=== PATIENT | female | born 1955 | race Caucasian/White ===

== ENCOUNTER 2018-10-16 11:36 | Inpatient (IN) | payer BC, OTHER ==
[~2018-10-16] VITALS: Ht 162.6 cm; Wt 93.0 kg
--- NOTE | 2018-10-16 15:00 | NUR ---
Pre-admission Pre-admission assessment performed in the intake department of [facility]. Pt is A&O and ambulatory with a steady gait. She does not appear intoxicated and answers questions appropriately. Vital signs are B/P: 129/66, HR 97, RR 16, O2 sat 96%, T 98.0. She reports that she has been using [place] 6 tabs of 10-325mg/day and Xanax 0.5mg/day. She also takes Lunesta at bed time. Last used [place] today at 1330 and last used Xanax this morning. Pt is stable and admission is to continue [facility].
[2018-10-16 15:15] VITALS: BP 129/66
[2018-10-16] MEDS ORDERED: BENA40TA67 PO (15:17)
[2018-10-16] MEDS ORDERED: HYDR-4354 PO (15:17)
[2018-10-16] MEDS ORDERED: ALPR0.5T PO (15:17)
[2018-10-16] MEDS ORDERED: PARO25TA16 PO (15:17)
[2018-10-16] MEDS ORDERED: ESZO3TAB27 PO (15:17)
[2018-10-16] MEDS ORDERED: HYDR25TA4 PO (15:17)
[2018-10-16] MEDS ORDERED: POTA10CA43 PO (15:17)
--- NOTE | 2018-10-16 15:17 | NUR ---
ADMISSION NOTE STATUS-FULL CODE HEIGHT-5'4 WEIGHT-205IBS PCP-DR. HOLMAN VITAL SIGNS-B/P-129/66,HR-97,RR-16,SPO2-96%,TEMP-98.1 Patient is 63 year old female admitted to [facility] for medical supervised withdrawal from Benzo(Xanax), Opioids([place]). Patient arrived on the unit at 1517. Patient skin is intact, no contraband found. Patient provided UDS. Patient is ambulatory with steady gait. PEERLA. Respirations even and unlabored, lung sounds clear bilaterally. Last BM was yesterday. Patient presents with tearing eyes, anxious, agitated, slumped posture and restless, fatigue. Patient does not appear to have any withdrawal symptoms at this time with evidence of low CIWA/COWS score, CIWA-2, COWS-3. SUBSTANCE USE HISTORY 1. NORCO- Taking 10 mg PO daily 4 times a day but for the past two years taking 60 mg daily which is more than it was prescribed for osteoarthritis. Last used was 10/16/18/, 10mg PO at 1330. 2. XANAX-Taking 0.5mg PO daily 3 times a day for the past 4 years was prescribed for my anxiety. Last used was 10/16/18 at 0800. 3. LUNESTA-Taking 3mg PO daily QHS was prescribed for insomnia. Last intake was 10/15/18 at 2200. MEDICAL AND PSYCHIATRIC HISTORY Patient reports PMH of depression, anxiety, insomnia, osteoarthritis. Patient reports past surgical history of Rotator cuff surgery in 2016 and right Bunion surgery in February 2018. Patient reports she never smokes cigarettes but for the past 5 years using Vape daily. Patient reports s/s of withdrawal as extreme anxiety, sweats, depression. Patient reports longest periods of sobriety is 3 days which was in 2017. Patient also reports " I really haven't allowed my self to go in to withdrawal because i am scared if i got sick who is going to take care of my daughter she was diagnosed with Asperger syndrome." Patient stated, "my friends are my support system and they are sober." Patient denies any history of seizure, no delirium, no cardiac complications, no overdose or blackout. Patient denies any history of SI/HI. Patient reports first time in treatment. Patient reports "I wanted to get sober for my daughter." My friends helped me to come to [facility] to get help. Patient reported " I also wanted to stop taking pills because i am scared to ." DR. Talbert was on the unit and was able to assess the patient. Educated patient about plan of care including detox, group therapy and discharge planning. Encourage patient to be open honest and verbalized support for patient in his recovery. Encourage patient to notify staff with any concerns. Patient was oriented to unit, room and call lights, oriented to unit routines and activity groups, and provided with hygiene supplies. Patient has been educated about plan of care and case management, as well as unit protocols. Safety measures in place, side rails up x2 bed locked in low position, call light within reach. Will cont to monitor. Addendum: 10/16/18 at 1851 by GLENROY CASTANON LVN [id number].
[2018-10-16 15:50] LABS: *URINE HCG, QUAL NEGATIVE (NEGATIVE)
[2018-10-16 16:00] VITALS: BP 130/67
[2018-10-16 16:02] LABS: *AMPHETAMINE, URINE NEGATIVE (NEGATIVE); *BARBITURATE, URINE NEGATIVE (NEGATIVE); *CANNABINOID, URINE NEGATIVE (NEGATIVE); *COCCAINE, URINE NEGATIVE (NEGATIVE); *OPIATE, URINE POSITIVE (NEGATIVE); *PHENCYCLIDINE SCREEN,URINE NEGATIVE (NEGATIVE)
[2018-10-16] MEDS ORDERED: LOPERAMIDE HCL 2 MG CAPSULE PO PRN ×2 (17:15)
[2018-10-16] MEDS ORDERED: ONDANSETRON 4 MG/2 ML VIAL IM PRN (17:15)
[2018-10-16] MEDS ORDERED: DIAZEPAM 5 MG TABLET PO PRN (17:15)
[2018-10-16] MEDS ORDERED: CLONIDINE HCL 0.1 MG TABLET PO PRN (17:15)
[2018-10-16] MEDS ORDERED: BUPRENORPHINE HCL 2 MG TAB.SUBL SL PRN (17:15)
[2018-10-16] MEDS ORDERED: diphenhydrAMINE 50 MG CAPSULE PO PRN (17:15)
[2018-10-16] MEDS ORDERED: ACETAMINOPHEN 325 MG TABLET PO PRN (17:15)
[2018-10-16] MEDS ORDERED: METHOCARBAMOL 750 MG TABLET PO PRN (17:15)
[2018-10-16] MEDS ORDERED: DIAZEPAM 10 MG TABLET PO PRN ×2 (17:15)
[2018-10-16] MEDS ORDERED: MIRALAX 17 GM POWD.PACK PO PRN (17:15)
[2018-10-16] MEDS ORDERED: HYDROXYZINE PAMOATE 25 MG CAPSULE PO PRN (17:15)
[2018-10-16] MEDS ORDERED: LORAZEPAM 2 MG/1 ML VIAL IM PRN (17:15)
[2018-10-16] MEDS ORDERED: MAGNESIUM HYDROXIDE 30 ML LIQUID UDC PO PRN (17:15)
[2018-10-16] MEDS ORDERED: ONDANSETRON ODT 4 MG TAB.RAPDIS SL PRN (17:15)
[2018-10-16] MEDS ORDERED: MAG HYDROX/AL HYDROX/SIMETH 30 ML LIQUID UDC PO PRN (17:15)
--- NOTE | 2018-10-16 19:16 | NUR ---
END OF SHIFT NOTE Endorse patient to night nurse 63 year old female admitted for Opioids/Benzo withdrawal. Patient was seen by MD douglas order to start 3 days Valium and 3 days Subutex taper in AM. Patient is currently resting in bed watching TV no s/s of distress noted. Encourage PO fluids as tolerated. All safety measures in place, call light within reach. Endorse care to night nurse.
--- NOTE | 2018-10-16 19:30 | NUR ---
START OF SHIFT Pt is a 63 y/o female admitted on 10/16/18 for benzo and opiate withdrawal. Pt will start a 3 day Valium and 3 day Subutex taper tomorrow, has PRNs available at this time. Last COWS 3 and CIWA 2 and no PRNs administered during day shift. Upon assessment pt presents with lethargy, anxiety, chills, elevated HR, and slumped posture. Medications due. Safety measures in place. Call light within reach. Will continue to monitor.
[2018-10-16 20:00] VITALS: BP 126/82
--- NOTE | 2018-10-16 20:00 | NUR ---
COWS/CIWA ASSESSMENT COWS 4 and CIWA 5. Pt presents with lethargy, anxiety, chills, elevated HR, and slumped posture. Pt laying in bed, fatigued and states, "I don't feel too bad right now, I just want to sleep."
--- NOTE | 2018-10-16 20:26 | NUR ---
PRN VALIUM 5 MG AND MOTRIN ADMINISTRATION CIWA 5. Pt presents with anxiety, chills, increased HR. Pt complains of joint pain r/t arthritis. Safety measures in place. Call light within reach. Will continue to monitor.
[2018-10-16] MEDS: IBUPROFEN 600 MG TABLET PO PRN (20:27)
[2018-10-16 21:18] LABS: BASOPHILS # (AUTO) 0.1 K/uL (0.0-8.0); BASOPHILS % (AUTO) 0.7 % (0.0-2.0); EOSINOPHILS # (AUTO) 0.3 K/uL (0.0-0.7); EOSINOPHILS % (AUTO) 3.3 % (0.0-7.0); HEMATOCRIT 40.5 % (31.2-41.9); HEMOGLOBIN 13.7 g/dL (10.9-14.3); LYMPHOCYTES # (AUTO) 3.2 K/uL (20.0-40.0); MEAN CORPUSCULAR HEMOGLOBIN 30.2 uug (24.7-32.8); MEAN CORPUSCULAR HGB CONC 34 g/dL (32.3-35.6); MEAN CORPUSCULAR VOLUME 89.1 fL (75.5-95.3); MONOCYTES # (AUTO) 0.8 K/uL (2.0-10.0); MONOCYTES % (AUTO) 7.6 % (0.0-11.0); NEUTROPHILS # (AUTO) 6.2 K/uL (1.8-8.9); NEUTROPHILS % (AUTO) 58.4 % (38.5-71.5); PLATELET COUNT (AUTO) 347 K/uL (179-408); RED BLOOD CELL COUNT(AUTO) 4.55 MIL/uL (3.63-4.92); WHITE BLOOD COUNT (AUTO) 10.5 K/uL (3.8-11.8)
--- NOTE | 2018-10-16 21:26 | NUR ---
PRN VALIUM AND MOTRIN REASSESSMENT Pt laying in bed with eyes closed, medications noted effective. Safety measures in place. Call light within reach. Will continue to monitor.
[2018-10-16 21:34] LABS: ALANINE AMINOTRANSFERASE 23 U/L (14-59); ALKALINE PHOSPHATASE 46 U/L (50-136); ASPARTATE AMINOTRANSFERASE 15 U/L (15-37); BILIRUBIN,TOTAL 0.2 mg/dL (0.2-1.0); CARBON DIOXIDE 29 mmol/L (21-32); CHLORIDE 104 mmol/L (98-107); GLUCOSE 128 mg/dL (74-106); MAGNESIUM 2.1 mg/dL (1.8-2.4); POTASSIUM 3.3 mmol/L (3.5-5.1); TOTAL PROTEIN, SERUM 6.7 g/dL (6.4-8.2); UREA NITROGEN, BLOOD 20 mg/dL (7-18)
[2018-10-16 21:44] LABS: ETHANOL < 3 MG/DL (0-0); THYROID STIMULATING HORMONE 1.866 mIU/mL (0.358-3.740)
[2018-10-16] MEDS ORDERED: POTASSIUM CHLORIDE 20 MEQ TAB.PRT.SR PO ONE (22:00)
[2018-10-17] VITALS: BP 123/81
--- NOTE | 2018-10-17 | NUR ---
COWS/CIWA DEFERRED Pt laying in bed with eyes closed, COWS/CIWA deferred, to be assessed when pt is awake per orders. Respirations even and unlabored. Safety measures in place. Will continue to monitor.
[2018-10-17 04:00] VITALS: BP 128/83
--- NOTE | 2018-10-17 07:13 | NUR ---
END OF SHIFT Pt is a 63 y/o female admitted on 10/16/18 for benzo and opiate withdrawal. Pt will start a 3 day Valium and 3 day Subutex taper this morning. Pt presented with lethargy, anxiety, chills, elevated HR, and slumped posture. Pt received PRN Valium 5 mg and Motrin, which were effective. Pt slept 10 hours. Intake 1000 ml, void x 2, stool x 0. Safety measures in place. Call light within reach. Pts needs have been met. Endorsed to day shift nurse.
--- NOTE | 2018-10-17 07:56 | NUR ---
START OF SHIFT NOTE Received report from night nurse, 63 year old female admitted for Benzo/Opioids withdrawal. Patient order to start her Subutex and Valium taper this morning. Per endorsement patient received PRN Valium and Motrin effective per night nurse, slept for 10 hours,last COWS-4, CIWA-5. Received patient asleep responsive to verbal and tactile stimuli. Breathing normal no SOB noted. Skin intact warm and dry tot touch. Vital signs WNL. All safety measures in place. Will cont with plan of care.
[2018-10-17 07:58] LABS: CREATININE 0.9 mg/dL (0.6-1.3); POTASSIUM 4.1 mmol/L (3.5-5.1)
[2018-10-17 08:00] VITALS: BP 114/72
[2018-10-17] MEDS: MULTIVITAMINS,THERAPEUTIC TABLET PO SCH (08:34)
[2018-10-17] MEDS: DIAZEPAM 5 MG TABLET PO SCH ×3 (08:34→21:22)
--- NOTE | 2018-10-17 08:34 | NUR ---
CIWA/COWS ASSESSMENT Patient presented with s/s of withdrawal such as anxiety, difficulty sitting still, agitation, restless, fatigue, yawning, bilateral hand tremors, sweats,chills, stomach cramps. CIWA-11, COWS-12. Patient received her schedule medications. Will cont to monitor. Addendum: 10/17/18 at 1523 by GLENROY CASTANON LVN [place]- COWS-13.
[2018-10-17] MEDS: BUPRENORPHINE HCL 2 MG TAB.SUBL SL SCH ×2 (08:35→21:23)
[2018-10-17] MEDS ORDERED: TUBERCULIN,PURIF.PROT.DERIV. 5 TU/0.1 ML TEST ID ONE (09:00)
[2018-10-17] MEDS ORDERED: 3 DAY TAPER OF VALIUM-SERENITY PROTOCOL PO PRN (09:00)
[2018-10-17] MEDS ORDERED: 3 DAY TAPER BUPRENORPHINE -SERENITY PROTOCOL SL PRN (09:00)
[2018-10-17] MEDS: PAROXETINE HCL 20 MG TABLET PO SCH (11:00)
[2018-10-17] MEDS ORDERED: NICOTINE POLACRILEX 4 MG GUM-PK OF TEN BC PRN (11:15)
[2018-10-17 12:00] VITALS: BP 149/73
--- NOTE | 2018-10-17 12:36 | NUR ---
PRN Nicotine Gum Pt reports Nicotine cravings. PRN Nicotine gum administered.
--- NOTE | 2018-10-17 13:06 | NUR ---
NICOTINE REASSESSMENT patient reported nicotine gum was effective craving subsided.
--- NOTE | 2018-10-17 14:08 | NUR ---
CIWA/COWS ASSESSMENT CIWA-11, COWS-12. Patient continues to exhibited s/s of withdrawal such as anxiety, agitation, restless, fatigue, yawning, bilateral hand tremors, sweats, stomach cramps. Patient received her schedule medications. Will cont to monitor.
--- NOTE | 2018-10-17 14:09 | NUR ---
Therapist prompted client to attend group therapy.
[2018-10-17 16:00] VITALS: BP 131/79
[2018-10-17] MEDS ORDERED: PATIENT MAY USE OWN MED- MD OK PO SCH (19:00)
--- NOTE | 2018-10-17 19:07 | NUR ---
END OF SHIFT NOTE Endorse patient to night nurse, patient admitted for Benzo/Opioids withdrawal. patient started on Subutex and Valium taper this morning for CIWA score 11 and COWS score 13. Patient presented with flat facial expression, emotional, anxious, agitated, restless, fatigue, bilateral hand tremors, yawning, stomach cramps, chills, sweats, patient received schedule medications along with PRN nicotine gum noted to be effective. Encourage patient to attend groups activities to learn new coping skills. Patient was encouraged adequate PO fluids intake as tolerated. Denies any SI/HI. All safety measures in place. Endorse care to night nurse, all information was discussed.
--- NOTE | 2018-10-17 19:30 | NUR ---
START OF SHIFT Pt is a 63 y/o female admitted on 10/16/18 for benzo and opiate withdrawal. Pt started a 3 day Valium and 3 day Subutex taper today, tolerating well. No PRNs and last COWS 10 and CIWA 11 during day shift. Upon assessment pt presents with anxiety, depressed affect, flushed skin, intermittent sweats, sensitivity to light, sensitivity to sounds, chills, stomach cramps, increased HR, disheveled appearance. Medications due. Safety measures in place. Call light within reach. Will continue to monitor.
[2018-10-17 20:00] VITALS: BP 139/84
--- NOTE | 2018-10-17 20:00 | NUR ---
COWS/CIWA ASSESSMENT COWS 11 and CIWA 12. Pt presents with anxiety, depressed affect, flushed skin, intermittent sweats, sensitivity to light, sensitivity to sounds, chills, stomach cramps, increased HR, disheveled appearance.
[2018-10-17] MEDS: HYDROCHLOROTHIAZIDE 25 MG TABLET PO SCH (20:01)
[2018-10-17] MEDS: POTASSIUM CHLORIDE 10 MEQ TAB.PRT.SR PO SCH (20:01)
[2018-10-17] MEDS: IBUPROFEN 600 MG TABLET PO PRN (20:01)
--- NOTE | 2018-10-17 20:01 | NUR ---
PRN MOTRIN ADMINISTRATION Pt reports pain in joints, mainly her left knee 05/07 r/t her arthritis. Pt also complains of generalized aches. Safety measures in place. Call light within reach. Will continue to monitor.
--- NOTE | 2018-10-17 21:01 | NUR ---
NAUN AMBRIZ REASSESSMENT Pt reports that her joint pain reduced slightly to a 4/10. Pt refusing additional pain medication. Pt stated, "I'll just lay down and I think I'll be okay."
[2018-10-18] VITALS: BP 129/87
--- NOTE | 2018-10-18 | NUR ---
COWS/CIWA ASSESSMENT COWS 6 and CIWA 10. Pt presents with anxiety, restlessness, flat affect, chills, sensitivity to sounds, disheveled appearance, difficulty staying asleep. Pt stated, "I just recently woke up, I think I'm going to read until I fall back asleep."
[2018-10-18 04:00] VITALS: BP 137/84
--- NOTE | 2018-10-18 04:00 | NUR ---
COWS/CIWA DEFERRED Pt laying in bed with eyes closed, COWS/CIWA deferred, to be assessed when pt is awake per orders. Respirations even and unlabored. Safety measures in place. Call light within reach. Will continue to monitor.
--- NOTE | 2018-10-18 07:07 | NUR ---
END OF SHIFT Pt is a 63 y/o female admitted on 10/16/18 for benzo and opiate withdrawal. Pt started a 3 day Valium and 3 day Subutex taper on 10/17/18, tolerating well. Pt presented with anxiety, depressed affect, flushed skin, intermittent sweats, sensitivity to light, sensitivity to sounds, chills, stomach cramps, body aches, increased HR, disheveled appearance. Pt also complained of left knee pain r/t arthritis, which was relieved by Motrin, rest and elevation. Scheduled medications administered, effective in S/S of withdrawal AEB COWS 11 and CIWA 12 lowered to COWS 6 and CIWA 10 during shift. Pt slept 8 hours. Intake 1000 ml, void x 2, stool x 1. Safety measures in place. Call light within reach. Pts needs have been met. Endorsed to day shift nurse.
--- NOTE | 2018-10-18 07:20 | NUR ---
Start of Shift Pt. is a 63 y/o female admitted for the medically managed withdrawal from Opiates and Benzodiazepines. Pt. was placed on a 3 day valium and 3 day Subutex taper to manage withdrawal symptoms. Endorse form previous shift pt. presented with anxiety, restlessness, and body aches. Received pt. in room. Pt. in bed with eyes closed. No signs of distress noted. Safety measures in place. Will continue to monitor pt.s behavior for safety.
[2018-10-18 08:00] VITALS: BP 101/62
--- NOTE | 2018-10-18 08:00 | NUR ---
COWS/CIWA Assessment COWS of 9 and CIWA of 9. Pt. in room presenting with anxiety, diaphoresis, restlessness, and tremors. Will give medications as ordered. Will continue to monitor pt.'s behavior for safety and medication effectiveness.
[2018-10-18 08:06] LABS: HEPATITIS B SURFACE AG Negative (Negative)
[2018-10-18] MEDS: DIAZEPAM 5 MG TABLET PO SCH ×2 (08:54→21:23)
[2018-10-18] MEDS: PAROXETINE HCL 20 MG TABLET PO SCH (08:54)
[2018-10-18] MEDS: BUPRENORPHINE HCL 2 MG TAB.SUBL SL SCH ×3 (08:54→21:23)
[2018-10-18] MEDS: MULTIVITAMINS,THERAPEUTIC TABLET PO SCH (08:55)
[2018-10-18] MEDS: POTASSIUM CHLORIDE 10 MEQ TAB.PRT.SR PO SCH (08:55)
[2018-10-18] MEDS: HYDROCHLOROTHIAZIDE 25 MG TABLET PO SCH (08:57)
[2018-10-18] MEDS ORDERED: VANCOMYCIN IV 2,000 MG in IV DEXTROSE 5% 500 ML IV SCH (09:00)
[2018-10-18 12:00] VITALS: BP 134/98
--- NOTE | 2018-10-18 12:00 | NUR ---
COWS/CIWA Assessment COWS of 9 and CIWA of 9. Pt. in room presenting with anxiety, diaphoresis, restlessness, and tremors. Pt. compliant with treatment plan and medication regiment. Will continue to monitor pt.'s behavior for safety and medication effectiveness.
[2018-10-18 16:00] VITALS: BP 120/73
--- NOTE | 2018-10-18 19:11 | NUR ---
End of Shift Pt. is a 63 y/o female admitted for the medically managed withdrawal from Opiates and Benzodiazepines. Pt. was placed on a 3 day valium and 3 day Subutex taper to manage withdrawal symptoms. Throughout shift pt. presented with anxiety, restlessness, and body aches. Pt. compliant with treatment plan and medication regiment. Safety measures in place. Will endorse pt.s care to oncoming shift.
--- NOTE | 2018-10-18 19:12 | NUR ---
Start of shift note Received report from day shift nurse. Pt is a 63 yo female, A+Ox4, presenting to [facility] for medically supervised Benzo/Opiate withdrawal. Pt was also taking Lunesta. Pt noted with generalized body pain, anxiety, agitation, and restlessness. Pt has HX of anxiety, depression, insomnia, arthritis, and fibromyalgia which will be monitored during shift. Pt is on 3 day Valium and 3 day Subutex tapers, tolerated well. Respirations even and unlabored. Will continue to monitor.
[2018-10-18] MEDS: IBUPROFEN 600 MG TABLET PO PRN (20:01)
--- NOTE | 2018-10-18 20:01 | NUR ---
PRN Motrin Pt c/o generalized body aches 03/07 and requested for PRN Motrin. Medication given and tolerated well. Will reassess within 1 HR. Will continue to monitor.
[2018-10-18 20:11] VITALS: BP 138/72
--- NOTE | 2018-10-18 20:11 | NUR ---
COWS and CIWA Assessment COWS: 8 and CIWA: 8. Pt noted with fine tremors, sweat, anxiety, agitation, pulse 94, chills, restlessness, mild diffuse discomfort, stuffy nose, and yawning. Respirations even and unlabored. Will continue to monitor.
--- NOTE | 2018-10-18 21:01 | NUR ---
PRN Motrin Reassessment Medication effective. Pt expresses reduction of pain to 2/10. NO s/s of ASE noted at this time. Respirations even an unlabored. Will continue to monitor.
--- NOTE | 2018-10-19 00:55 | NUR ---
V/S refused and COWS and CIWA Assessment deferred for sleep. Respirations even and unlabored. Will continue to monitor.
--- NOTE | 2018-10-19 04:50 | NUR ---
V/S refused and COWS and CIWA Assessment deferred for sleep. Respirations even and unlabored at this time. Will continue to monitor.
--- NOTE | 2018-10-19 07:00 | NUR ---
End of shift note Pt was continuously noted with generalized body aches, anxiety, restlessness, and agitation. Pt remained in room for majority of shift except to get food from kitchen. Pt remained cooperative and compliant with all aspects of treatment. Pt was given PRN Motrin @2000. Pt remains on 3 day Valium and 3 day Subutex tapers, tolerated well. Pt slept for a total of 9 HRS. Last COWS: 8 and Last CIWA: 8 @2010. Respirations even and unlabored. Will endorse to day shift nurse.
--- NOTE | 2018-10-19 07:15 | NUR ---
Start of Shift note Pt. is a 63 y/o female admitted for the medically managed withdrawal from benzodiazepines, and Opiates. Pt. was placed on Valium and Opiate tapers to manage withdrawal symptoms. Endorse from previous shift pt. presented with anxiety and restlessness. Received pt. in room. Pt. in bed with eye closed. No signs of SOB noted. Safety measures in place. Will continue to monitor pt.s behavior for safety and medication effectiveness.
[2018-10-19 08:00] VITALS: BP 126/75
--- NOTE | 2018-10-19 08:00 | NUR ---
COWS/CIWA Assessment COWS of 8 and CIWA of 8. Pt. in room presenting with diaphoresis, anxiety, and restlessness. Will give medications as ordered. Will continue to monitor pt.'s behavior for safety and medication effectiveness.
[2018-10-19] MEDS: MULTIVITAMINS,THERAPEUTIC TABLET PO SCH (08:56)
[2018-10-19] MEDS: POTASSIUM CHLORIDE 10 MEQ TAB.PRT.SR PO SCH (08:57)
[2018-10-19] MEDS: PAROXETINE HCL 20 MG TABLET PO SCH (08:58)
[2018-10-19] MEDS: HYDROCHLOROTHIAZIDE 25 MG TABLET PO SCH (08:58)
[2018-10-19] MEDS ORDERED: DIAZEPAM 5 MG TABLET PO SCH (09:00)
[2018-10-19] MEDS ORDERED: BUPRENORPHINE HCL 2 MG TAB.SUBL SL SCH (09:00)
[2018-10-19 09:27] LABS: BILIRUBIN,TOTAL 0.4 mg/dL (0.2-1.0); CREATININE 0.9 mg/dL (0.6-1.3); POTASSIUM 3.4 mmol/L (3.5-5.1); TOTAL PROTEIN, SERUM 7.3 g/dL (6.4-8.2)
[2018-10-19] MEDS ORDERED: POTASSIUM CHLORIDE 20 MEQ TAB.PRT.SR PO ONE (11:15)
[2018-10-19 12:00] VITALS: BP 118/64
--- NOTE | 2018-10-19 12:00 | NUR ---
COWS/CIWA Assessment COWS of 7 and CIWA of 7. Pt. in room presenting with anxiety, and restlessness. Pt. compliant with medication regiment and treatment plan. Will continue to monitor pt.'s behavior for safety.
[2018-10-19 16:00] VITALS: BP 118/79
--- NOTE | 2018-10-19 19:02 | NUR ---
End of Shift note Pt. is a 63 y/o female admitted for the medically managed withdrawal from benzodiazepines, and Opiates. Pt. was placed on Valium and Opiate tapers to manage withdrawal symptoms both of which she completed this AM. Throughout shift pt. presented with anxiety and restlessness. Pt. compliant with medication regiment and treatment plan. Safety measures in place. Will endorse pt.s care to oncoming shift.
[2018-10-19 20:00] VITALS: BP 129/83
--- NOTE | 2018-10-19 20:00 | NUR ---
Start of Shift Pt is a 63 year old female admitted for benzodiazepine and opiate withdrawal. Pt also used Lunesta. Pt was placed on a 3 day Valium and 3 day Subutex taper, which she has completed. Pt is set to discharge tomorrow. At time of assessment, Pt presents in room in bed watching television. Pt reports feeling anxious and restless regarding discharge set in the morning. COWS 6 and CIWA 6. Safety measures in place, will continue to monitor.
--- NOTE | 2018-10-19 21:16 | NUR ---
PRN Administration Pt reports difficulty falling asleep, requests aid. Benadryl 50mg PRN administered. Safety measures in place, will continue to monitor.
--- NOTE | 2018-10-19 22:16 | NUR ---
PRN Reassessment Upon reassessment, pt is noted to be sleeping, respirations even/unlabored. Benadryl effective. Safety measures in place, will continue to monitor.
--- NOTE | 2018-10-20 | NUR ---
CIWA/COWS Deferred CIWA/COWS deferred d/t pt sleeping, to assess while pt is awake as ordered. Pt refused to be woken up for 0000 VS assessment Safety measures in place, will continue to monitor
--- NOTE | 2018-10-20 04:00 | NUR ---
CIWA/COWS Deferred CIWA/COWS deferred d/t pt sleeping, to assess while pt is awake as ordered. Pt refused to be woken up for 0400 VS assessment Safety measures in place, will continue to monitor
--- NOTE | 2018-10-20 07:05 | NUR ---
End of Shift Pt is a 63 year old female admitted for benzodiazepine and opiate withdrawal. Pt also used Lunesta. Pt was placed on a 3 day Valium and 3 day Subutex taper, which she has completed. Pt is set to discharge today. During shift, Pt presents in room, alert/oriented x4 and cooperative. Pt reported feeling anxious and restless regarding discharge set in the morning. COWS 6 and CIWA 6. Benadryl 50mg PRN administered for sleep. Pt slept for 8 hrs, intake of 800 ml PO, and voids x2. Safety measures in place, endorsed to day shift nurse.
--- NOTE | 2018-10-20 07:35 | NUR ---
START OF SHIFT Endorse rcvd from ongoing nurse, client is in room, a/o x 4, client presents with anxious mood, flat affect, yawning, and difficulty concentrating. Client reports fatigue, anxiety, and stomach cramps. Last CIWA 6 / COWS 6 @ 1999. She completed 3 day Valium / 3 day Subutex taper. Client is schedule for discharge to [facility] for treatment. PRN Benadryl 50mg PO for sleep, client slept 8 hrs. [place] precautions. Call light within reach.
[2018-10-20 07:58] LABS: CREATININE 0.8 mg/dL (0.6-1.3); POTASSIUM 3.9 mmol/L (3.5-5.1)
[2018-10-20 08:05] VITALS: BP 119/83
--- NOTE | 2018-10-20 08:15 | NUR ---
CIWA 5 / COWS 6 Client reports feeling anxious and agitated because of her discharge. Educated client on discharge process, MD instructions and recommendations, she verbalized understanding. Non-pharmacologic measures rendered. Call light within reach.
[2018-10-20 08:24] VITALS: BP 119/83
[2018-10-20] MEDS: PAROXETINE HCL 20 MG TABLET PO SCH (08:24)
[2018-10-20] MEDS: HYDROCHLOROTHIAZIDE 25 MG TABLET PO SCH (08:24)
[2018-10-20] MEDS: MULTIVITAMINS,THERAPEUTIC TABLET PO SCH (08:24)
[2018-10-20] MEDS ORDERED: POTASSIUM CHLORIDE 8 MEQ TAB.PRT.SR PO SCH (09:00)
--- NOTE | 2018-10-20 09:42 | NUR ---
Discharge Note Client discharged in stable condition with all valuable, belongings, prescriptions (x2), and home medications. Client denies SI/HI. To home via private car.
== END 2018-10-20 09:42 | disposition home or self-care (01) | DRG 895 ==
LOC: SRC 14:29
PROVIDERS: ADMIT Family Medicine Addiction Medicine; ATTEND Family Medicine Addiction Medicine
PROC: HZ2ZZZZ Detoxification Services for Substance Abuse Treatment (ICD-10-PCS; principal; 2018-10-16)
PROC: HZ31ZZZ Individual Counseling for Substance Abuse Treatment, Behavioral (ICD-10-PCS; 2018-10-17)
PROC: HZ41ZZZ Group Counseling for Substance Abuse Treatment, Behavioral (ICD-10-PCS; 2018-10-17)
DX: F11.23 Opioid dependence with withdrawal (principal); F33.2 Major depressive disorder, recurrent severe without psychotic features; F13.230 Sedative, hypnotic or anxiolytic dependence with withdrawal, uncomplicated; F41.1 Generalized anxiety disorder; Z79.899 Other long term (current) drug therapy; Z81.1 Family history of alcohol abuse and dependence; M19.90 Unspecified osteoarthritis, unspecified site; E87.6 Hypokalemia; E86.0 Dehydration; B19.20 Unspecified viral hepatitis C without hepatic coma; R73.03 Prediabetes; Z90.710 Acquired absence of both cervix and uterus; F17.290 Nicotine dependence, other tobacco product, uncomplicated; I10 Essential (primary) hypertension
CPT/HCPCS: 36415; 70030-TC; 80307; 80346; 80361; 83735; 84443; 84703; 85025; 86580; 86592; 86705; 86803; 87340; 87806; A4663; G0480; Q0163